=== PATIENT | male | born 1940 | race Caucasian/White ===

== ENCOUNTER → 2023-08-04 06:32 | Outpatient (REF) | payer BC, MEDICARE, SELFPAY | LOC: MRI 06:32 | PROVIDERS: ATTENDING PHYSICIAN Psychiatry & Neurology Neurology | DX: M54.16 Radiculopathy, lumbar region (principal) | CPT/HCPCS: 72148 ==

== ENCOUNTER → 2024-03-23 09:04 | Outpatient (REF) | payer MEDICARE, BC, SELFPAY | LOC: RAD 09:04 | PROVIDERS: ATTENDING PHYSICIAN Podiatrist; FAMILY PHYSICIAN Student in an Organized Health Care Education/Training Program | DX: I70.201 Unspecified atherosclerosis of native arteries of extremities, right leg (principal) | CPT/HCPCS: 93922 ==

== ENCOUNTER → 2024-06-01 08:03 | Outpatient (REF) | payer MEDICARE, BC, SELFPAY | LOC: HWRCS 08:03 | PROVIDERS: ATTENDING PHYSICIAN Internal Medicine Cardiovascular Disease; FAMILY PHYSICIAN Student in an Organized Health Care Education/Training Program | DX: I35.1 Nonrheumatic aortic (valve) insufficiency (principal) | CPT/HCPCS: 93306 ==